=== PATIENT | male | born 1985 | race Caucasian/White ===

== ENCOUNTER 2017-12-19 15:07 | Emergency (ER) | payer OTHER ==
[~2017-12-19] VITALS: Ht 165.1 cm; Wt 63.5 kg
[~2017-12-19 15:07] MED LIST: HYDACE5 PO; IBUP800 PO; Keflex500 MG PO; OXYACE7.5T PO; PENVK250 PO; RXOXYACE PO; RXPENVK250 PO
[2017-12-19] MEDS ORDERED: CEPH500 PO (15:41)
[2017-12-19] MEDS ORDERED: Bactrim Ds Tab1 EACH PO (15:41)
== END 2017-12-19 16:08 | disposition home or self-care (01) ==
LOC: ER 15:07
DX: S80.811A Abrasion, right lower leg, initial encounter (principal); L03.116 Cellulitis of left lower limb; W22.8XXA Striking against or struck by other objects, initial encounter
CPT/HCPCS: 99283

== ENCOUNTER 2021-03-22 02:21 | Emergency (ER) | payer OTHER ==
[~2021-03-22] VITALS: Ht 165.1 cm; Wt 61.2 kg
[~2021-03-22 02:21] MED LIST changes: +Bactrim Ds Tab1 EACH PO; +CEPH500 PO
== END 2021-03-22 03:29 | disposition home or self-care (01) ==
LOC: ER 02:21
DX: S69.92XA Unspecified injury of left wrist, hand and finger(s), initial encounter (principal); M79.632 Pain in left forearm; F17.200 Nicotine dependence, unspecified, uncomplicated; X58.XXXA Exposure to other specified factors, initial encounter
CPT/HCPCS: 99283